=== PATIENT | male | born 1965 | race Native Hawaiian/Other Pacific Islander ===

== ENCOUNTER 2017-01-22 15:59 | Emergency (ER) | payer MEDICAID ==
--- NOTE | 2017-01-22 16:56 | RAD ---
HISTORY: Swelling, no known injury. COMPARISON: None TECHNIQUE:Three views Foot Laterality:Left FINDINGS: Bones: No fracture or dislocation. 4 mm plantar spur. Joints: Minimal to mild first MTP joint space loss. The remainder of the joints are well preserved. Soft tissue: Soft tissue swelling is noted about the foot. IMPRESSION: Soft tissue swelling without fracture or dislocation. Degenerative changes as above.
== END 2017-01-22 17:29 | disposition home or self-care (01) ==
LOC: ED 15:59
DX: M25.572 Pain in left ankle and joints of left foot (principal); Z72.0 Tobacco use